=== PATIENT | male | born 1960 | race Caucasian/White ===

== ENCOUNTER 2017-05-25 06:40 | Day surgery (SDC) | payer BC, OTHER ==
[2017-05-25] MEDS ORDERED: FENTAnyl 50 MCG/ML VIAL (08:51)
[2017-05-25] MEDS ORDERED: MIDAZOLAM 1 MG/ML 2 ML INJ ×2 (08:51)
== END 2017-05-25 14:22 | disposition home or self-care (01) ==
LOC: GIL 06:40
DX: Z12.11 Encounter for screening for malignant neoplasm of colon (principal); K29.50 Unspecified chronic gastritis without bleeding; K20.9 Esophagitis, unspecified; K64.4 Residual hemorrhoidal skin tags; K64.8 Other hemorrhoids; K57.90 Diverticulosis of intestine, part unspecified, without perforation or abscess without bleeding
CPT/HCPCS: 43239; 88305; 88312